=== PATIENT | female | born 2000 | race Caucasian/White ===

== ENCOUNTER 2023-03-16 11:41 | Emergency (ER) | payer OTHER, SELFPAY | END 2023-03-16 14:26 | disposition home or self-care (01) | LOC: CSHERS 11:41 | DX: S89.91XA Unspecified injury of right lower leg, initial encounter (principal); S89.92XA Unspecified injury of left lower leg, initial encounter; X50.1XXA Overexertion from prolonged static or awkward postures, initial encounter; Y93.02 Activity, running | CPT/HCPCS: 99283 ==